=== PATIENT | male | born 1935 | race Caucasian/White ===

== ENCOUNTER 2021-01-25 19:23 | Observation (INO) ==
[2021-01-25 21:47] LABS: ABS Eosinophils 0.1 10^3/ul (0-0.6); ABS Lymphocytes 1.4 10^3/ul (1.0-4.8); ABS Monocytes 0.6 10^3/ul (0-0.8); Eosinophil % 2.5 %; Hematocrit 31 % (42-52); Hemoglobin 10.8 g/dL (14.0-18.0); Lymphocyte % 26.8 %; Mean Corpuscular HGB Conc 35 g/dL (31-36); Mean Corpuscular Hemoglobin 33 pg (27-31); Mean Corpuscular Volume 96 fL (80-94); Mean Platelet Volume 9.2 fL (7.4-10.4); Nucleated Red Blood Cells % 0.1; Platelet Count 190 10^3/uL (150-450); Red Blood Count 3.26 10^6 /uL (4.18-5.48); Red Cell Distribution Width 13 % (10-15); White Blood Count 5.1 10^3/uL (3.5-10.8)
[2021-01-25 21:59] LABS: Rapid COVID-19 Molecular Undetected (Undetected)
[2021-01-25 22:02] LABS: Albumin 3.7 g/dL (3.2-5.2); Albumin/Globulin Ratio 1.1 (1-3); Calcium 9.1 mg/dL (8.6-10.3); Globulin 3.4 g/dL (2-4); HDL Cholesterol 31.1 mg/dL; Magnesium 2.2 mg/dL (1.9-2.7); Potassium 4.6 mmol/L (3.5-5.0); Total Bilirubin 0.3 mg/dL (0.2-1.0); Total Protein 7.1 g/dL (6.4-8.9)
[2021-01-25 22:03] LABS: Troponin I 0.02 ng/mL (<0.03)
[2021-01-25 22:24] LABS: TSH Ultra Thyroid Stim Horm 2.55 mcIU/mL (0.34-5.60)
[2021-01-25] MEDS: Heparin 5000 UNITS/ML 1 mL VIAL SUBCUT SCH (22:24)
[2021-01-25 23:51] LABS: C Reactive Protein 4.28 mg/L (<8.01)
[2021-01-26] MEDS: Heparin 5000 UNITS/ML 1 mL VIAL SUBCUT SCH ×2 (05:56→14:02)
[2021-01-26 06:32] LABS: Troponin I 0.01 ng/mL (<0.03)
[2021-01-26 06:33] LABS: Calcium 8.8 mg/dL (8.6-10.3); Magnesium 2.1 mg/dL (1.9-2.7)
[2021-01-26 06:44] LABS: Potassium 5.1 mmol/L (3.5-5.0)
[2021-01-26] MEDS ORDERED: Cyanocobalamin INJ 1,000 MCG/ML VIAL 1 ML VIAL IM SCH (09:00)
[2021-01-26] MEDS ORDERED: Aspirin EC 81 mg TAB.EC (enteric coated) PO SCH (09:00)
[2021-01-26 09:47] LABS: Folate 15.09 ng/mL (5.90-24.80)
[2021-01-26] MEDS ORDERED: Perflutren Lipid Microsphere 3 ML VIAL ONE (10:47)
[2021-01-26] MEDS ORDERED: SODIUM ZIRCONIUM CYCLOSILICATE 10 GM PACKET PO ONE (13:17)
[2021-01-26 15:15] VITALS: BP 101/40
== END 2021-01-26 18:15 | disposition home or self-care (01) ==
LOC: MEDTELE 19:23 → ED 19:23 → SUATTDRO 20:51 → MEDTELE 22:45
PROVIDERS: ADMIT Internal Medicine; ATTEND Internal Medicine